=== PATIENT | male | born 1950 | race Caucasian/White ===

== ENCOUNTER 2016-09-10 08:00 | Outpatient (CLI) ==
[2016-09-10 08:21] LABS: BASOPHILS # (AUTO) 0.1 K/uL (0-0.2); EOSINOPHILS # (AUTO) 0.4 K/ul (0.0-0.7); EOSINOPHILS % (AUTO) 4.2 % (0.0-7.0); HEMATOCRIT 41.8 % (42.0-52.0); HEMOGLOBIN 14.3 g/dl (14.0-18.0); IMMATURE GRANULOCYTE % (AUTO) 0.8 % (0.0-5.0); LYMPHOCYTES # (AUTO) 2.5 K/uL (0.60-3.4); LYMPHOCYTES % (AUTO) 28.9 (10.0-50.0); MEAN CORPUSCULAR HEMOGLOBIN 33.2 pg (27.0-31.0); MEAN CORPUSCULAR HGB CONC 34.2 (31.8-35.4); MONOCYTES # (AUTO) 0.8 K/uL (0.4-2.0); MONOCYTES % (AUTO) 8.9 (0-10); NEUTROPHILS # (AUTO) 4.9 K/ul (2.0-6.9); NEUTROPHILS % (AUTO) 56.2; PLATELET COUNT 205 10^3/uL (140-440); RED BLOOD COUNT 4.31 10^6/ul (4.70-6.10); WHITE BLOOD COUNT 8.75 K/ul (4.2-10.2)
[2016-09-10 08:47] LABS: ALBUMIN 3.6 g/dL (3.4-5.0); ALBUMIN/GLOBULIN RATIO 0.95; ANION GAP 13.6; BILIRUBIN,TOTAL 1.27 mg/dL (0.00-1.20); BUN/CREATININE RATIO 13.33; CALCIUM 9.4 mg/dL (8.2-10.2); CHOL/HDL RATIO 4.7 (4.5-6.4); CREATININE 1.05 mg/dL (0.60-1.10); POTASSIUM 3.6 mmol/L (3.5-5.1); TOTAL PROTEIN 7.4 g/dL (5.8-8.1)
--- NOTE | 2016-09-10 08:56 | CT ---
EXAM: Noncontrast CT of the abdomen and pelvis HISTORY: Ventral hernia without obstruction or gangrene COMPARISON: None available TECHNIQUE: Noncontrast CT of the abdomen and pelvis FINDINGS: Mediastinal and right hilar calcified lymph nodes are seen. Coronary artery calcified atherosclerot ic plaque is present. Noncontrast technique limits evaluation of the abdominal viscera. There is mild nodularity hepatic c ontour, most conspicuous within the left hepatic lobe. A small predominately fat density structure is seen at the anterior margin of the left hepatic lobe measuring 2.1 cm, of doubtful significance. The gallbladder is contracted. A few splenic calcified granulomas are seen. The unenhanced adrena ls are unremarkable. The pancreas is mildly atrophic. A punctate right renal nonobstructing calculi are seen. A questionable punctate left renal nonobstructing calculus is seen. No ureteral calculi are seen. No abnormal small bowel dilation is seen. Diverticulosis is seen without evidence of diverticulitis. The appendix is not abnormally enlarged. There is a supraumbilical ventral abdominal wall hernia measuring 7.1 x 18.1 x 11.2 cm. This hernia contains fat, edema and free fluid. A fat containing umbilical hernia is also identified measuring 6.0 x 3.1 x 3.2 cm. There is calcified atherosclerotic plaque of the aorta and its branches. No free air is seen. Ather osclerotic calcifications are present. There is mild to moderate multilevel disc disease. There is mild grade 1 posterior listhesis at L2-3 and L3-4. IMPRESSION: Mid to superior ventral abdominal wall hernia measuring 7.1 x 18.1 x 11.2 cm. This hernia contains f at, edema and free fluid. Fat containing umbilical hernia measuring 6.0 x 3.1 x 3.2 cm. Mildly nodular hepatic contour suggesting possible cirrhosis. Right renal nonobstructing calculi. Questionable left renal nonobstructing calculus. Atherosclerosis including the coronary arteries. Diverticulosis without evidence of diverticulitis.
== END 2016-09-10 08:01 | disposition home or self-care (01) ==
LOC: RAD 08:00
PROVIDERS: ATTEND Nurse Practitioner Family
DX: K43.9 Ventral hernia without obstruction or gangrene (principal); F10.21 Alcohol dependence, in remission; R01.1 Cardiac murmur, unspecified; K74.60 Unspecified cirrhosis of liver; E75.6 Lipid storage disorder, unspecified; Z12.5 Encounter for screening for malignant neoplasm of prostate
CPT/HCPCS: 36415; 80053; 80061; 80074; 85025; 93005; 93010

== ENCOUNTER 2016-09-16 12:01 | Outpatient (CLI) ==
--- NOTE | 2016-09-16 12:31 | CT ---
EXAM: CT Head HISTORY: Essential primary hypertension, visual disturbance COMPARISON: None TECHNIQUE: CT head performed without contrast FINDINGS: There is no mass effect, midline shift, or intracranial hemmorhage. Romero white different iation is preserved. There is no extra-axial collection. The ventricles, sulci, and basal cisterns are patent and symmetric. There is chronic ischemic disease of the white matter and cerebral volum e loss. There is no depressed calvarial fracture. The mastoid air cells are clear. The visualized paranasal sinuses are clear. There are intracranial atherosclerotic calcifications. IMPRESSION: 1. No acute intracranial abnormality. 2. Chronic ischemic disease of the white matter and cerebral volume loss.
== END 2016-09-16 12:02 | disposition home or self-care (01) ==
LOC: RAD 12:01
PROVIDERS: ATTEND Nurse Practitioner Family
DX: I10 Essential (primary) hypertension (principal); H53.9 Unspecified visual disturbance

== ENCOUNTER 2017-08-15 14:26 | Outpatient (CLI) | END 2017-08-15 14:27 | disposition home or self-care (01) | LOC: FCC-LAB 14:26 | PROVIDERS: ATTEND Nurse Practitioner Family | DX: K74.60 Unspecified cirrhosis of liver (principal); E78.1 Pure hyperglyceridemia | CPT/HCPCS: 36415; 80053; 80061; 82140; 82150; 83690; 85007; 85025 ==

== ENCOUNTER 2017-08-22 11:55 | Outpatient (CLI) | END 2017-08-22 11:56 | disposition home or self-care (01) | LOC: LAB 11:55 | PROVIDERS: ATTEND Nurse Practitioner Family | DX: R73.09 Other abnormal glucose (principal); K74.60 Unspecified cirrhosis of liver; R79.89 Other specified abnormal findings of blood chemistry; D72.1 Eosinophilia | CPT/HCPCS: 36415; 80048; 82140; 83036; 85025 ==

== ENCOUNTER 2017-08-31 14:01 | Outpatient (CLI) | END 2017-08-31 14:02 | disposition home or self-care (01) | LOC: FCC-LAB 14:01 | PROVIDERS: ATTEND Nurse Practitioner Family | DX: K74.60 Unspecified cirrhosis of liver (principal); R79.89 Other specified abnormal findings of blood chemistry | CPT/HCPCS: 36415; 80053; 82140 ==

== ENCOUNTER 2017-11-30 10:42 | Outpatient (CLI) | END 2017-11-30 10:43 | disposition home or self-care (01) | LOC: LAB 10:42 | PROVIDERS: ATTEND Family Medicine | DX: E72.20 Disorder of urea cycle metabolism, unspecified (principal); K21.9 Gastro-esophageal reflux disease without esophagitis; E11.9 Type 2 diabetes mellitus without complications; K70.31 Alcoholic cirrhosis of liver with ascites; R97.20 Elevated prostate specific antigen [PSA]; Z80.42 Family history of malignant neoplasm of prostate | CPT/HCPCS: 36415; 80053; 82043; 82140; 83036; 84153; 85025; 85610; 85730 ==

== ENCOUNTER 2017-12-07 06:21 | Outpatient (CLI) ==
--- NOTE | 2017-12-07 10:39 | US ---
EXAM: Complete abdominal ultrasound. History: Alcoholic cirrhosis. Comparison: CT abdomen pelvis 09/10/2016 Technique: Multiple sonographic images through the abdomen were obtained. Color duplex Doppler was used to interrogate vascular flow. Findings: Both ureteral jets are seen in the bladder. No focal bladder wall thickening. The visualized pancre as demonstrates no gross abnormality. The abdominal aorta and IVC were not seen due to obscuration b y bowel gas. There is antegrade flow within the main portal vein. Heterogeneous cirrhotic appearing liver. No foc al liver lesions identified sonographically. No abdominal ascites. No shadowing gallstones. Gallbl adder wall is not thickened. Common bile duct measures 0.4 cm in caliber. Spleen is not enlarged. No focal splenic lesions. Both kidneys measure normal in long length without evidence for hydronephrosis or shadowing calculus. 0.7 cm probable cyst within the superior pole of the right kidney. Impression: 1. Cirrhotic configuration of the liver. 2. Small right renal cyst.
== END 2017-12-07 06:22 | disposition home or self-care (01) ==
LOC: CAR 06:21
PROVIDERS: ATTEND Family Medicine
DX: K70.31 Alcoholic cirrhosis of liver with ascites (principal); K43.9 Ventral hernia without obstruction or gangrene; R01.1 Cardiac murmur, unspecified

== ENCOUNTER 2018-02-02 13:18 | Outpatient (CLI) | END 2018-02-02 13:19 | disposition home or self-care (01) | LOC: CAR 13:18 | PROVIDERS: ATTEND Family Medicine | DX: Z01.810 Encounter for preprocedural cardiovascular examination (principal) | CPT/HCPCS: 93005; 93010 ==

== ENCOUNTER 2018-02-09 06:39 | Outpatient (CLI) ==
[2018-02-09] MEDS ORDERED: DOBUTAMINE 500 MG-D5W 250 ML 250 ML IV ONE (07:37)
[2018-02-09] MEDS ORDERED: ATROPINE SULFATE PFS ONE (07:38)
--- NOTE | 2018-02-09 09:04 | DOBSTECHO ---
Date of Test: 02/09/18 Ordering Physician: DR. DAMIAN AWAD Smoking History: QUIT 1 YEAR AGO Reason for Examination: SURGICAL CLEARANCE, ABNORMAL EKG, GERD, HEART MURMUR, DM Current Medications: NONE Height: 69" Weight: 230 LBS Resting EKG: SINUS RHYTHM/ NO ACUTE CHANGES Target Heart Rate: 130 BPM S-T Segment Stage Time HR BPM BP MMHG Rhythm +/- Elevation Depression Symptoms Control Sitting 70 BPM 148/110 SR X NONE Dobutamine 250mg/D5W 5cmg/KG/mn 10cmg/KG/mn 3:00 84 BPM 164/98 SR X NONE 15cmg/KG/mn 2:00 93 BPM 175/94 SR X NONE 20cmg/KG/mn 2:00 110 BPM 172/90 SR X NONE 25cmg/KG/mn 2:00 116 BPM 174/88 SR X NONE 30cmg/KG/mn 2:00 123 BPM 154/86 SR X NONE 35cmg/KG/mn 1:00 129 BPM 40cmg/KG/mn 6 MIN POST INFUSION z 118 BPM 148/80 SR X NONE 10 MIN POST INFUSION z 90 BPM 148/90 SR X NONE DURATION OF INFUSION 12:01 MAXIMUM HEART RATE REACHED 129 BPM Interpretation: 94% OXYGEN SATURATION WITH DOBUTAMINE INFUSION 1. NO EVIDENCE OF ISCHEMIA BY ST-T WAVE 2. NO CHEST PAIN OR DISCOMFORT 3. NORMAL LEFT VENTRICULAR CONTRACTILITY--RESTING AND WITH DOBUTAMINE INFUSION 4. HYPERTENSION AT REST AND WITH SOME IMPROVEMENT IN BLOOD PRESSURE WITH DOBUTAMINE INFUSION MTDD
--- NOTE | 2018-02-09 09:07 | ECHOSTRESS ---
Date of Exam: 02/09/18 Ordering Physician: DR. DAMIAN AWAD Reason for Echo: SURGICAL CLEARANCE, ABNORMAL EKG, DOBUTAMINE STRESS TEST--NO ISCHEMIA M-Mode Normal Adult Results LV Dimensions Normal Adult Results AoV Opening excursions >1.6 LVEDD-base- 3.5-5.8 Ao root dimensions 2.0-3.7 LVESD-base- 3.1-4.6 L. Atrium dimensions 1.9-3.8 Post. Wall thickness 0.8-1.1 IV septum (thickness) 0.7-1.2 Post. Wall excursion 0.72-1.3 Septal motion Systolic motion R. Ventricular cavity 1.5-2.0 LVEF 60% Paradoxical septal wall motion 2-D: NORMAL LEFT VENTRICULAR CONTRACTILITY--RESTING AND WITH DOBUTAMINE INFUSION M-MODE: MV: AV: TV: PV: CHAMBER SIZE: WALL MOTION: NORMAL LEFT VENTRICULAR CONTRACTILITY--RESTING AND WITH DOBUTAMINE INFUSION PERICARDIUM: INTERPRETATION: 1. NORMAL LEFT VENTRICULAR CONTRACTILITY--RESTING AND WITH DOBUTAMINE INFUSION MTDD
== END 2018-02-09 06:40 | disposition home or self-care (01) ==
LOC: CAR 06:39
PROVIDERS: ATTEND Family Medicine
DX: R94.31 Abnormal electrocardiogram [ECG] [EKG] (principal); Z01.818 Encounter for other preprocedural examination